=== PATIENT | female | born 1960 | race Caucasian/White ===

== ENCOUNTER 2020-03-15 10:15 | Outpatient (CLI) | payer OTHER, SELFPAY ==
--- NOTE | 2020-03-15 11:40 | SIXMINWLK ---
Six Minute Walk Test PFT: Six Minute Walk Start: 03/15/20 11:38 Freq: Status: Active Protocol: RPE Activity Type Activity Date Activity User E-Sign Co-Sign Detail Recorded Client Recorded Date Recorded By Document 03/15/20 11:39 [facility] [id number] 03/15/20 11:39 [facility] 03/15/20 11:39 Six Minute Walk Gender F Age 59 Race White
--- NOTE | 2020-03-15 11:41 | PCRCNOTE ---
PATIENT REQUIRES 1 EAR PROBE FOR ACCURATE SPO2 MEASUREMENTS. FINGER PROBE IS SPOTTY AND LOW.
--- NOTE | 2020-03-18 16:14 | P.PCNSIX_ITS ---
Six Minute Walk Six Minute Walk: DOS: 03/15/2020 REQUESTING: Dr Vera REASON FOR TESTING: Shortness of breath SIX MINUTE WALK This test was conducted per ATS guidelines. An ear probe was used instead of a finger probe as the finger probe was not as reliable. The initial saturation was 96% and pulse was 84. She walked for 6 minutes w ithout stopping, completing 1300 feet, 396 meters. Saturation was 93% at the three minute sami. The final saturation was 98% and pulse was 88. IMPRESSION: This test shows no joe hypoxemia, no supplemental need for oxygen with exertion. Distance walked is adequate for age.
--- NOTE | 2020-03-18 16:23 | WPDPFTINT ---
PFT Interpretation PFT Interpretation: DOS: 03/15/2020 REQUESTING: Dr. Vera REASON FOR TESTING: Shortness of breath PULMONARY FUNCTION TESTS Results are reproducible and reliable. Spirometry: FEV1 is 152% predicted, above the normal range. FVC is 138%, above normal range. The FEV1% is 81%, normal. No change with bronchodilator. Lung volumes: Total lung capacity is mildly increased, 127%, consistent with hyperinflation. Normal RV, no air trapping. No increase in airway resistance. Diffusion: DLCO is 104%, normal. Flow volume loop: No scooping of the expiratory limb. Expiratory limb has a late peak IMPRESSION: Mild hyperinflation which may be due to supranormal spirometry values. Lack of response to bronchodilator should not preclude use if clinically indicated. Anne Vera MD
== END 2020-03-15 10:16 | disposition home or self-care (01) ==
PROVIDERS: Visit Provider Internal Medicine Critical Care Medicine
DX: R06.02 Shortness of breath (principal); R94.2 Abnormal results of pulmonary function studies
CPT/HCPCS: 94060; 94618; 94726; 94729

== ENCOUNTER → 2020-06-09 13:10 | Outpatient (CLI) | payer OTHER, SELFPAY ==
--- NOTE | ~2020-06-09 | DEXA_ITS ---
Bone Density Report Name: Lesia Ulrich Age: 59 Sex: Female Ethnicity: White Date of : 1960 Indication: osteopenia; parental hip fracture; height loss; inflammatory bowel disease; prior fracture; hysterectomy; postmenopausal Referring Provider: SERGE SINGLETARY Study: Bone densitometry was performed. Exam Date: June 09, 2020 Accession number: [id number] Bone Density: Region BMD T-score Z-score Classification AP Spine (L1-L4) 0.896 -1.4 -0.1 Osteopenia Femoral Neck (Left) 0.598 -2.3 -1.1 Osteopenia Total Hip (Left) 0.799 -1.2 -0.4 Osteopenia Femoral Neck (Right) 0.606 -2.2 -1.0 Osteopenia Total Hip (Right) 0.775 -1.4 -0.6 Osteopenia Total Hip Mean 0.787 -1.3 -0.5 Osteopenia World Health Organization criteria for BMD impression classify patients as: Normal (T-score at or above -1.0), Osteopenia (T-score between -1.0 and -2.5), or Osteoporosis (T-score at or below -2.5). 10-year Fracture Risk: FRAX not reported because: Prior hip or vertebral fracture Previous Exams: Region Exam Age BMD T-score BMD Change BMD Change Date g/cm2 vs Baseline vs Previous AP Spine(L1-L4) 06/09/2020 59 0.896 -1.4 0.029* 0.041* 01/18/2017 56 0.855 -1.7 -0.012 0.022 12/22/2015 54 0.833 -1.9 -0.035* -0.035* 06/13/2011 50 0.867 -1.6 Total Hip(Left) 06/09/2020 59 0.799 -1.2 -0.080* -0.045* 01/18/2017 56 0.844 -0.8 -0.035* 0.024 12/22/2015 54 0.821 -1.0 -0.059* -0.059* 06/13/2011 50 0.879 -0.5 Total Hip(Right) 06/09/2020 59 0.775 -1.4 -0.068* -0.060* 01/18/2017 56 0.835 -0.9 -0.008 -0.009 12/22/2015 54 0.843 -0.8 0.000 0.000 06/13/2011 50 0.843 -0.8 *Denotes significance at 95% confidence level, LSC for AP Spine = 0.022 g/cm2, LSC for Total Hip = 0.027 g/cm2 Clinical Information Provided by Patient: Parent has had a hip fracture Smokes Has 3 or more alcoholic drinks per day Has used the following medications: Calcium Has the following medical conditions: Inflammatory bowel diseases, Hysterectomy Patient maximum height was 63 Menopause Age: 42 No regular weight bearing exercise Does not regularly consume dairy products Onset of menses at age 14 Number of children 0 Impression: The patient has low bone mass, based on the Left Femoral Neck T-score. The patient has risk fac
--- NOTE | ~2020-06-09 | MM_ITS ---
EXAMINATION: MM screening [facility] BI w christian HISTORY: Screening mammogram TECHNIQUE: Craniocaudal and mediolateral oblique 3-D tomosynthesis images were obtained and synthetic 2-D images were generated. CAD analysis was submitted and interpreted. COMPARISON: 04/01/2018, 01/18/2017, 12/22/2015 BREAST PARENCHYMAL COMPOSITION: There are scattered areas of fibroglandular density. FINDINGS: RIGHT BREAST: An asymmetry is present in the anterior/middle third of the slightly inner breast 3 cm from the nipple on craniocaudal tomosynthesis image 25/60. LEFT BREAST: There is no evidence of suspicious mass, calcification, or architectural distortion to s uggest malignancy. There has been no significant interval change. IMPRESSION: 1. Right breast asymmetry on the craniocaudal view. 2. Additional mammographic views and possible breast ultrasound are recommended. BI-RADS Category 0: Incomplete: Needs additional imaging evaluation. Reviewed, dictated and finalized at location A. IMPRESSION: 1. Right breast asymmetry on the craniocaudal view. 2. Additional mammographic views and possible breast ultrasound are recommended . BI-RADS Category 0: Incomplete: Needs additional imaging evaluation.
== END ==
PROVIDERS: PCP Internal Medicine; Visit Provider Internal Medicine
DX: Z12.31 Encounter for screening mammogram for malignant neoplasm of breast (principal); R92.8 Other abnormal and inconclusive findings on diagnostic imaging of breast; M85.88 Other specified disorders of bone density and structure, other site; M85.852 Other specified disorders of bone density and structure, left thigh; M85.851 Other specified disorders of bone density and structure, right thigh
CPT/HCPCS: 77063; 77067; 77080

== ENCOUNTER 2020-08-15 12:50 | Outpatient (CLI) | payer OTHER, SELFPAY ==
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
[2020-09-02 16:25] VITALS: BMI 21.7
== END 2020-08-15 12:51 ==
LOC: ANHCSM 09-15 12:51
PROVIDERS: PCP Internal Medicine; Visit Provider Internal Medicine Critical Care Medicine
DX: G47.33 Obstructive sleep apnea (adult) (pediatric) (principal)
CPT/HCPCS: 95806

== ENCOUNTER 2020-08-29 08:38 | Outpatient (CLI) | payer OTHER, SELFPAY ==
--- NOTE | ~2020-08-29 | MM_ITS ---
EXAMINATION: MM diagnostic [facility] RT w christian HISTORY: Right breast asymmetry TECHNIQUE: Additional 3-D tomosynthesis images of the right breast were performed and synthetic 2-D i mages were generated. CAD analysis was submitted and interpreted. COMPARISON: Comparison to multiple prior studies sequentially, with oldest reviewed study dated 12/22. BREAST PARENCHYMAL COMPOSITION: Breast composed of scattered areas of fibroglandular density. FINDINGS: There are no suspicious masses, calcifications or architectural distortion in the right nell ast to suggest malignancy. IMPRESSION: 1. No mammographic evidence for malignancy in the right breast. 2. Routine yearly screening mammogram and regular clinical breast examination are recommended. BI-RADS Category 1: Negative Reviewed, dictated and finalized at location A. IMPRESSION: 1. No mammographic evidence for malignancy in the right breast. 2. Routine yearly screening mammogram and regular clinical breast examination a re recommended. BI-RADS Category 1: Negative
== END 2020-08-29 08:39 ==
PROVIDERS: PCP Internal Medicine; Visit Provider Internal Medicine
DX: R92.8 Other abnormal and inconclusive findings on diagnostic imaging of breast (principal)
CPT/HCPCS: 77061; 77065; G0279

== ENCOUNTER 2020-10-08 00:49 | Outpatient (CLI) | payer OTHER, SELFPAY ==
[2020-10-08 21:19] LABS: SARS-CoV-2 RNA PCR Negative
== END 2020-10-08 00:50 | disposition home or self-care (01) ==
LOC: ANHCOVIDDT 00:49
PROVIDERS: PCP Internal Medicine; Visit Provider Internal Medicine Gastroenterology
DX: Z01.812 Encounter for preprocedural laboratory examination (principal); Z20.828 Contact with and (suspected) exposure to other viral communicable diseases
CPT/HCPCS: 87635; C9803; U0003

== ENCOUNTER 2020-10-11 00:01 | Day surgery (SDC) | payer OTHER, SELFPAY ==
[2020-10-07 09:52] VITALS: BMI 22.6
--- NOTE | 2020-10-10 11:57 | WPDANESEPPF ---
Anes - Initial Pre Proc Eval Procedure: Operation Date: 10/11/20 07:30 Proposed Procedures p Screening Colonoscopy - Nicolás Rivers MD Date/Time: 10/10/20 11:57 Surgeon: Nicolás Rivers MD Pre Op Diagnosis: Neoplasm Screening Patient Data Age: 59 Gender: F Height: 1.57 m Weight: 56 kg Allergies Allergy/AdvReac Type Severity Reaction Status Date / Time Contrast Media Allergy Intermediate HIVES Uncoded 10/11/20 06:14 Home Medications Medication Instructions Recorded Confirmed Type alprazolam 0.5 mg tablet 0.5 mg PO DAILY PRN #30 tablet 08/18/20 10/07/20 Rx peg 3350-electrolytes 236 240 ml PO Q10M #4000 ml 08/23/20 09/27/20 Rx gram-22.74 gram-6.74 gram-5.86 gram solution alendronate 70 mg tablet 70 mg PO WEEKLY #14 tablet 09/27/20 10/07/20 Rx bupropion HCl 150 mg tablet,12 hr 150 mg PO BID 90 Days #180 tablet 09/27/20 10/07/20 Rx sustained-release Acidophilus Probiotic 1 tab-cap PO DAILY 10/07/20 10/07/20 History calcium carbonate [Calcium 600] 600 mg PO DAILY 10/07/20 10/07/20 History folic acid 0.8 mg PO DAILY 10/07/20 10/07/20 History turmeric root extract 1,000 mg PO DAILY 10/07/20 10/07/20 History Patient hx anesthesia problems: none Family hx anesthesia problems: none PMFSH Past Medical History Medical History Anemia Crohn disease History of tobacco abuse Hyperlipidemia Hypertension Multiple nodules of lung PJ (obstructive sleep apnea) Scoliosis of thoracic spine Sinusitis Vitamin D deficiency Surgical History Surgical History H/O tubal ligation H/O: hysterectomy History of carpal tunnel release History of colonoscopy Family History Family History Mother Diabetes mellitus Cancer of pancreas Father Laryngeal cancer Sibling Diabetes mellitus Social History Social History Smoking packs per day: 1 Smoking cigarettes per day: 20.0 Years smoked: 40 Smoking pack-years: 40.00 Smoking status: Current every day smoker Tobacco type: cigarettes Alcohol intake: current Drinks per week: 20 Alcohol use details: BEERS/SHOTS Substance use: current Substance use type: marijuana Other substance usage details: DAILY USE Last use: 10/07/2020 Living arrangements: alone Gender identity (if verbalized by the patient): Female Spiritual care concerns: No Anes - Eval Final PreProcedure Day of Procedure 10/10/20 11:57 Patient weight: normal Heart: regular rate and rhythm Lungs: clear to auscultation and normal air movement Airway: Mallampati scale class II Neurological: alert and oriented Last oral intake: >/= 8 hours ASA classification: II Emergent: no Anesthetic plan: proceed Anesthesia type and monitoring: general GIVS and standard monitoring Informed Consent: The patient's anesthetic plan and its attendant risks and benefits were discussed with the patient/family/POA. Questions were solicited and answers provided to the satisfaction of the patient/family/POA.
[2020-10-11 06:15] VITALS: BP 133/84; PULSE 73; RESP 16; TEMP 36.2; O2SAT 100; BMI 23.1
[2020-10-11] MEDS: LACTATED RINGERS 1,000 ML 150 ML IV CONT (06:26)
[2020-10-11 08:01] VITALS: BP 121/74; PULSE 78; RESP 18; O2SAT 100
--- NOTE | 2020-10-11 08:01 | PM.HPGS ---
History of Present Illness History of Present Illness Consent: Risks, benefits, and alternatives have been discussed and questions answered. Patient agrees to proceed with procedure. Chief complaint: Neoplasm Screening Narrative: Lesia Ulrich is a 59 year old female with Crohn's disease involving colon diagnosed in 1993, she has been on different medications such as prednisone, asacol, imuran, humira (developed lupus like type symptoms) and currently she is not taking anything. She had several colonoscopies by Dr Macias, normally every 2 years last one 2017 that showed mild chronic colitis. Denies any flare right now. Review of Systems Constitutional: Constitutional: Denies headache(s) and Denies weakness Eyes: Eyes: Denies blurry vision ENT: Reports Normal hearing present, Denies headache(s) and Denies neck pain Cardiovascular: Cardiovascular: Denies chest pain and Denies dyspnea Respiratory: Respiratory: Denies dyspnea Gastrointestinal: Gastrointestinal: Reports no additional gastrointestinal complaints Genitourinary: Genitourinary: Denies dysuria Musculoskeletal: Musculoskeletal: Denies neck pain Integumentary/Breasts: Skin/Breast: Denies dry skin Neurologic: Reports Normal hearing present, Denies headache(s) and Denies weakness Psychiatric: Psychiatric: Denies anxiety Endocrine: Endocrine: Denies change in body appearance Hematologic/Lymphatic: Hematologic/Lymphatic: Denies easy bleeding Allergic/Immunologic: Allergic/Immunologic: Denies urticaria PMFSH Past Medical History Medical History Anemia Crohn disease History of tobacco abuse Hyperlipidemia Hypertension Multiple nodules of lung PJ (obstructive sleep apnea) Scoliosis of thoracic spine Sinusitis Vitamin D deficiency Surgical History Surgical History H/O tubal ligation H/O: hysterectomy History of carpal tunnel release History of colonoscopy Family History Family History Mother Diabetes mellitus Cancer of pancreas Father Laryngeal cancer Sibling Diabetes mellitus Social History Social History Smoking packs per day: 1 Smoking cigarettes per day: 20.0 Years smoked: 40 Smoking pack-years: 40.00 Smoking status: Current every day smoker Tobacco type: cigarettes Alcohol intake: current Drinks per week: 20 Alcohol use details: BEERS/SHOTS Substance use: current Substance use type: marijuana Other substance usage details: DAILY USE Last use: 10/07/2020 Living arrangements: alone Gender identity (if verbalized by the patient): Female Spiritual care concerns: No Meds Home Medications and Allergies Home Medications Medication Instructions Recorded Confirmed Type alprazolam 0.5 mg tablet 0.5 mg PO DAILY PRN #30 tablet 08/18/20 10/07/20 Rx peg 3350-electrolytes 236 240 ml PO Q10M #4000 ml 08/23/20 09/27/20 Rx gram-22.74 gram-6.74 gram-5.86 gram solution alendronate 70 mg tablet 70 mg PO WEEKLY #14 tablet 09/27/20 10/07/20 Rx bupropion HCl 150 mg tablet,12 hr 150 mg PO BID 90 Days #180 tablet 09/27/20 10/07/20 Rx sustained-release Acidophilus Probiotic 1 tab-cap PO DAILY 10/07/20 10/07/20 History calcium carbonate [Calcium 600] 600 mg PO DAILY 10/07/20 10/07/20 History folic acid 0.8 mg PO DAILY 10/07/20 10/07/20 History turmeric root extract 1,000 mg PO DAILY 10/07/20 10/07/20 History Allergies Allergy/AdvReac Type Severity Reaction Status Date / Time Contrast Media Allergy Intermediate HIVES Uncoded 10/11/20 06:14 Vital Signs Vital Signs - 24 hr 10/11/20 06:15 Temperature 97.1 F L Pulse Rate 73 Respiratory Rate 16 Blood Pressure 133/84 Pulse Oximetry 100 Exam Const: General: comfortable and no acute distress HENMT: General nose exam: Normal na
[2020-10-11 08:11] VITALS: BP 118/73; PULSE 69; RESP 20; O2SAT 100
[2020-10-11 08:21] VITALS: BP 141/83; PULSE 70; RESP 18; O2SAT 100
== END 2020-10-11 08:30 | disposition home or self-care (01) ==
PROVIDERS: PCP Internal Medicine; Visit Provider Internal Medicine Gastroenterology
PROC: 0DJD8ZZ Inspection of Lower Intestinal Tract, Via Natural or Artificial Opening Endoscopic (ICD-10-PCS; CPT 45378; principal; 2020-10-11 07:30)
DX: Z12.11 Encounter for screening for malignant neoplasm of colon (principal); K50.10 Crohn's disease of large intestine without complications; K57.30 Diverticulosis of large intestine without perforation or abscess without bleeding; I10 Essential (primary) hypertension; E78.5 Hyperlipidemia, unspecified; G47.33 Obstructive sleep apnea (adult) (pediatric); D64.9 Anemia, unspecified; E55.9 Vitamin D deficiency, unspecified; F17.210 Nicotine dependence, cigarettes, uncomplicated; F12.90 Cannabis use, unspecified, uncomplicated
CPT/HCPCS: 45380; 87635; 88305; C9803; J2704; J7120; U0003